=== PATIENT | female | born 1985 | race Caucasian/White ===

== ENCOUNTER 2016-07-09 09:24 | Emergency (ER) | payer SELFPAY ==
[2016-07-09 10:02] LABS: Hematocrit 40.7 % (37.0-47.0); Hemoglobin 13.2 gm/dL (12.5-16.0); Mean Cell Volume 86.6 fl (78-100); Mean Corpuscular Hemoglobin 28.1 pg (27-31); Mean Corpuscular Hgb Conc 32.4 g/dl (32-36); Mean Platelet Volume 9.4 fl (6.0-9.5); Neutrophil # 3.2 K/mm3 (1.3-6.0); Neutrophil % 54.7 % (42-75.0); Platelet Count 199 K/mm3 (150-450); Red Cell Distribution Width 13.7 % (11.5-14.0); White Blood Count 5.9 K/mm3 (4.0-10.5)
[2016-07-09 10:05] LABS: Urine Bilirubin Negative (NEGATIVE); Urine Blood 50 /ul (NEGATIVE); Urine Ketone Negative (NEGATIVE); Urine Nitrite Negative (NEGATIVE); Urine Protein Negative (NEGATIVE); Urine Specific Gravity 1.025 SP.GR. (1.005-1.010); Urine Urobilinogen Normal (NORMAL)
[2016-07-09 10:11] LABS: Urine Appearance Clear; Urine Bacteria TRACE; Urine Color Yellow; Urine WBC None Seen /hpf (0-5)
[2016-07-09 10:11] LABS: Albumin * 4.2 gm/dl (3.4-5.0); Anion Gap 11.7 mmol/L (6.8-13.8); BUN/Creatinine Ratio 9.3 (9.0-21.6); Bilirubin, Total 0.5 mg/dL (0.0-1.1); Ca. Corrected For Albumin 8.6 mg/dL (8.4-10.2); Calcium * 9.1 mg/dL (7.9-10.9); Carbon Dioxide 29.3 mmol/L (24-32.6); Total Protein 8.1 gm/dL (6.2-8.2)
--- NOTE | 2016-07-09 11:08 | ERNOTE ---
Abdominal HPI - Narrative Date of Service: 07/09/16 - General Chief Complaint: Abdominal Pain Time Seen by Provider: 07/09/16 10:59 Source: patient, family, RN notes reviewed Exam Limitations: no limitations - Immun/Allergies/Home Medications Immunizatons: IMMUNIZATION HX Immunizations Up to Date Yes History of Influenza Vaccine No Hx Pneumococcal Vaccination No Allergies/Adverse Reactions: Allergies penicillin G Adverse Reaction (Verified 07/09/16 09:46) Home Medications: HOME MEDICATIONS NK [No Home Medication] 09/01/15 [Last Taken Unknown] - History of Present Illness Narrative: 30 y/o female ambulatory to ED for lower abdominal pain that began this morning. This has been a recurrent problem for at least 2 months and she has been evaluated in [facility] and at [place]. She reports being diagnosed with diverticulitis last month. She reports that her labs have always been normal. At one point she was having rectal bleeding. This resolved. She reports that she has been having vaginal bleeding constantly since the of her last child, who appears to be approximately 2. She denies any nausea or vomiting. She does not have a PCP. Timing: intermittent Quality: severe, aching Activities at Onset: none Prior Abdominal Problems: Present: similar symptoms Prior Treatment: Present: recently seen - elsewhere, treated by physician. Absent: currently on antibiotics Review of Systems - Review of Systems Constitutional: Absent: fever, chills EYE: Present: no symptoms reported ENT: Present: no symptoms reported Respiratory: Absent: shortness of breath, cough Cardiology: Present: no symptoms reported Gastrointestinal/Abdominal: Present: diarrhea, abdominal pain. Absent: nausea, vomiting, eating less, drinking less Genitourinary: Present: other - irregular menses. Absent: frequency, dysuria, hematuria Musculoskeletal: Absent: back pain, muscle pain Skin: Absent: rash, lesions Neurological: Present: dizziness/light-headedness. Absent: headache Endocrine: Present: no symptoms reported Hematologic/Lymphatic: Present: no symptoms reported Psych: Present: no symptoms reported - Patient's Past Medical History Patient History - Medical: No pertinent hx Patient History - Cardiac/Respiratory: No pertinent hx Patient History - Cancer: No Hx of Cancer Patient History - Surgical Procedures: , Tubal Ligation LMP (Calendar): 06/18/16 - Social History Living Situations: home Smoking Status: Current every day smoker Have you smoked in the past 12 months: Yes Alcohol Use: none Drug Use: none Physical Exam - Physical Exam General Appearance: Present: alert, mild distress, thin Neck: Present: normal inspection, nontender, supple Respiratory: Present: no respiratory distress, normal breath sounds, no accessory muscle use, lungs clear Cardiovascular/Chest: Present: regular rate, rhythm, no murmur, normal peripheral pulses Gastrointestinal/Abdominal: Present: nondistended, soft, no organomegaly, tenderness - suprapubic, abnormal bowel sounds - hyperactive. Absent: rebound, mass Back Exam: Present: normal inspection, no CVA tenderness Neurological Exam: Present: alert, oriented, normal mood/affect, no motor/ sensory deficits Skin Exam: Present: normal color, warm/dry ED Progress - Results and Orders Patient's Lab Results:: I have reviewed the patient's lab results. - Vital Signs Patient's Vital Signs:: I have reviewed the patient's vital signs. Vital Signs: Vital Signs 07/09/16 09:41 Temperature 36.4 C L Pulse Rate 101 H Respiratory 16 Rate Blood Pressure 101/68 O2 Sat by Pulse 99 Oximetry - X-Ray X-Ray #1 X-Ray: abdomen Interpretation: Reviewed by me X-ray Comments: TECHNIQUE: AP upright and supine views of the abdomen were obtained, total of 2 images. COMPARISONS: None available.. FINDINGS: Abdomen Flat W/ Upright *: No subdiaphragmatic free air. No abnormal dilation of large or small bowel. Patient has numerous bilateral renal calcifications, with the largest calcification on the right kidney measuring approximately 4 mm, and largest of the left kidney measuring approximately 3 mm. Osseous structures are intact. IMPRESSION: 1. Nonobstructive bowel gas pattern. 2. Numerous bilateral renal calcifications suggested. Correlate clinically for renal colic. Electronically signed by Danilo Deluca M.D.. - Progress/Reassessment Chief Complaint: Abdominal Pain Progress:: Improved Progress Note-Subjective: Minimal improvement in pain with Toradol but did resolve after IV Morphine. Plan - Plan Plan: CBC and CMP unremarkable. Negative serum HCG. Small amount of blood in urine but patient has been spotting and denies flank pain or urinary symptoms. Renal calculi noted on abdominal film, CT done for further eval - no ureteral calculi noted. Patient does have a 3cm right adnexal cyst - her intermittent pain does correlate with ovarian cyst. Discussed need for f/u of pulmonary nodule. 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 Departure - Departure Clinical Impression: Abdominal pain in female patient Disposition: Home Follow Up Needed Condition: Good Instructions: Ovarian Cyst, [id number] Additional Instructions: Ibuprofen every 6 hours for pain Schedule routine check up with gynecology Referrals: Ramirez Rose DO [Staff Physician] -
[2016-07-09] MEDS ORDERED: KETOROLAC TROMETHAMINE 60 MG/2 ML VIAL IM ONE ×2 (11:10→11:20)
[2016-07-09] MEDS ORDERED: METOCLOPRAMIDE HCL 5 MG/ML VIAL IV ONE (12:47)
[2016-07-09] MEDS ORDERED: MORPHINE SULFATE 2 MG/ML DISP.SYRIN IV ONE (12:47)
[2016-07-09] MEDS ORDERED: NORMAL SALINE 1,000 ML IV ONE (12:48)
[2016-07-09 13:06] VITALS: BP 103/70
== END 2016-07-09 14:21 | disposition home or self-care (01) ==
LOC: ER 09:24
DX: R10.9 Unspecified abdominal pain (principal); F17.210 Nicotine dependence, cigarettes, uncomplicated

== ENCOUNTER 2016-07-13 14:31 | Emergency (ER) | payer SELFPAY ==
[2016-07-13 14:50] VITALS: BP 107/70
[2016-07-13 15:06] LABS: Urine Bilirubin Negative (NEGATIVE); Urine Ketone Negative (NEGATIVE); Urine Nitrite Negative (NEGATIVE); Urine Protein Negative (NEGATIVE); Urine Specific Gravity 1.015 SP.GR. (1.005-1.010); Urine Urobilinogen Normal (NORMAL)
[2016-07-13] MEDS ORDERED: diphenhydrAMINE HCL 50 MG/ML VIAL IV ONE (15:06)
[2016-07-13] MEDS ORDERED: PROMETHAZINE HCL 12.5 MG in DEXTROSE 5 % IN WATER 50 ML IV ONE ×2 (15:06)
[2016-07-13] MEDS ORDERED: KETOROLAC TROMETHAMINE 30 MG/ML VIAL IV ONE (15:06)
[2016-07-13] MEDS ORDERED: NORMAL SALINE 1,000 ML IV ONE (15:06)
[2016-07-13 15:15] LABS: Hematocrit 35.9 % (37.0-47.0); Hemoglobin 11.7 gm/dL (12.5-16.0); Mean Cell Volume 86.3 fl (78-100); Mean Corpuscular Hemoglobin 28.1 pg (27-31); Mean Corpuscular Hgb Conc 32.6 g/dl (32-36); Mean Platelet Volume 9.2 fl (6.0-9.5); Neutrophil # 5.1 K/mm3 (1.3-6.0); Neutrophil % 61.4 % (42-75.0); Platelet Count 185 K/mm3 (150-450); Red Blood Count 4.16 M/mm3 (4.2-5.4); Red Cell Distribution Width 13.9 % (11.5-14.0); Urine Blood 10 /ul (NEGATIVE); Urine Color Yellow; White Blood Count 8.4 K/mm3 (4.0-10.5)
[2016-07-13 15:16] LABS: Urine Appearance Clear; Urine Bacteria TRACE; Urine WBC TRACE /hpf (0-5)
[2016-07-13] MEDS ORDERED: diphenhydrAMINE HCL 50 MG/ML VIAL ONE (15:29)
[2016-07-13] MEDS ORDERED: KETOROLAC TROMETHAMINE 30 MG/ML VIAL ONE (15:29)
[2016-07-13 15:30] LABS: Anion Gap 11.6 mmol/L (6.8-13.8); BUN/Creatinine Ratio 12.7 (9.0-21.6); Bilirubin, Total 0.3 mg/dL (0.0-1.1); Ca. Corrected For Albumin 8.5 mg/dL (8.4-10.2); Calcium * 8.8 mg/dL (7.9-10.9); Carbon Dioxide 29.3 mmol/L (24-32.6); Potassium 3.9 mmol/L (3.4-4.6); Total Protein 7.7 gm/dL (6.2-8.2)
--- NOTE | 2016-07-13 17:20 | ERNOTE ---
ER Female HPI Date of Service: 07/13/16 Stated Complaint: UTI Time Seen by Provider: 07/13/16 14:59 Source: patient Exam Limitations: no limitations Immunizations: IMMUNIZATION HX Immunizations Up to Date Yes History of Influenza Vaccine No Hx Pneumococcal Vaccination No Allergies/Adverse Reactions: Allergies penicillin G Adverse Reaction (Verified 07/13/16 14:50) Home Medications: HOME MEDICATIONS Ciprofloxacin HCl [Cipro] 500 mg PO BID #17 tab 07/13/16 [Last Taken Unknown] Etodolac 300 mg PO BID PRN #8 capsule 07/13/16 [Last Taken Unknown] - History of Present Illness Narrative: Patient presents to the ED with right back pain that radiates to her right abdomen. She relates she has been having this pain ever since saturday. The pain has not changed. She was seen and evaluated with labs and CT scan revealing multiple kidney stones in the kidney and a 3cm right sided cyst. SHe does not think the cyst is causing her pain because she has no pelvic pain. She has some intermittent dysuria. No other vaginal Sx. She tells me she primarily wants something for the pain because the tylenol and Ibuprofen are not helping. No vomiting, no fever. Timing: Present: constant Quality: Present: aching Onset Location: Present: other - right back radiating to right abdomen Activities at Onset: Present: none Prior Abdominal Problems: Present: none Modifying Factors - (Improves): Present: other Modifying Factors - (Worsens): Present: other - none Associated Symptoms: Present: nausea, dysuria. Absent: fever/chills, urinary frequency Prior Treatment: Present: recently seen Review of Systems - Review of Systems Constitutional: Absent: fever ENT: Present: no symptoms reported Respiratory: Present: no symptoms reported Cardiology: Present: no symptoms reported Gastrointestinal/Abdominal: Present: nausea, abdominal pain Genitourinary: Absent: frequency, decreased urinary output Neurological: Absent: weakness - Patient's Past Medical History Patient History - Medical: No pertinent hx Patient History - Cardiac/Respiratory: No pertinent hx Patient History - Cancer: No Hx of Cancer Patient History - Surgical Procedures: , Tubal Ligation Patient History - Other: None LMP (females 10-50): 1 month LMP (Calendar): 06/18/16 - Social History Living Situations: home Alcohol Use: none Drug Use: none - Immunizations Immunizations Up to Date: Yes Hx Pneumococcal Vaccination: No History of Influenza Vaccine: No Physical Exam - Physical Exam General Appearance: Present: alert, no apparent distress Eye Exam: Normal inspection: bilateral, PERRL: bilateral Ears, Nose, Throat: Present: normal ENT inspection Neck: Present: normal inspection Respiratory: Present: no respiratory distress, normal breath sounds, no accessory muscle use, lungs clear Cardiovascular/Chest: Present: regular rate, rhythm Gastrointestinal/Abdominal: Present: normal bowel sounds, nondistended, soft, other - Mild right lateral mid abdominal tenderness. No peritoneal signs, no guarding or rebound. Non-surgical exam.. Absent: guarding, rebound, McBurney sign, Segura sign Back Exam: Present: CVA tenderness (R) Extremity Exam: Present: normal inspection Neurological Exam: Present: alert, no motor/sensory deficits Skin Exam: Absent: skin rash ED Progress - Results and Orders Patient's Lab Results:: I have reviewed the patient's lab results. - Vital Signs Patient's Vital Signs:: I have reviewed the patient's vital signs. Vital Signs: Vital Signs 07/13/16 14:46 Temperature 37.4 C Pulse Rate 93 Respiratory 16 Rate Blood Pressure 107/70 O2 Sat by Pulse 97 Oximetry - Progress/Reassessment Chief Complaint: Genitourinary Problem Progress:: Improved Progress Note-Subjective: 07/13/16 17:[address] scan, this was reviewed. She has a non-surgical exam and is non- toxic and in no distress. I do not feel a repeat CT is needed at this point. Giventhe bacteria and trace WBCs I would start ABX. She needs to be seen saturday for a re-check and sooner if fever or worsening Sx. I discussed this at length with her and she is agreeable. I discussed warning signs and reasons to reutrn as well as the need for close f/u. Departure Clinical Impression: Flank pain - Departure Disposition: Home self-care Condition: Stable Instructions: Flank Pain, [id number] Additional Instructions: Rest. Fluids. Stop Ibuprofen while taking new medication. You may continue tylenol. Take antibiotic as directed. You need to be seen saturday for a re- check with a doctor. Return sooner for fever, vomiting, increased pain or if your condition worsens or changes in any way. Prescriptions: Ciprofloxacin HCl [Cipro] 500 mg PO BID #17 tab Etodolac 300 mg PO BID PRN #8 capsule PRN Reason: Pain
== END 2016-07-13 17:25 | disposition home or self-care (01) ==
LOC: ER 14:31
DX: R10.9 Unspecified abdominal pain (principal)

== ENCOUNTER 2016-07-21 16:42 | Emergency (ER) | payer SELFPAY ==
[2016-07-21] MEDS ORDERED: ALBUTEROL SULFATE/IPRATROPIUM 3 ML NEBU IH ONE ×2 (17:38→18:08)
[2016-07-21] MEDS ORDERED: NORMAL SALINE 1,000 ML IV ONE (17:38)
--- NOTE | 2016-07-21 17:49 | ERNOTE ---
Medical Problem HPI - Narrative Date of Service: 07/21/16 - General Chief Complaint: Flu Symptoms Time Seen by Provider: 07/21/16 17:35 Source: patient, RN notes reviewed Exam Limitations: clinical condition - Immun/Allergies/Home Medications Immunizations: IMMUNIZATION HX Immunizations Up to Date Yes History of Influenza Vaccine No Hx Pneumococcal Vaccination No Allergies/Adverse Reactions: Allergies penicillin G Adverse Reaction (Verified 07/21/16 16:59) Home Medications: HOME MEDICATIONS Sulfamethoxazole/Trimethoprim [Bactrim Ds] 1 tab PO BID #20 tab 07/21/16 [Last Taken Unknown] predniSONE [Prednisone] 2 tab PO DAILY #14 tab 07/21/16 [Last Taken Unknown] - Pain Score Pain Score #1 Pain Score: 6 - History of Present History Narrative: julita is a 30 year old female who presents to the er with c/o fever, uri symptoms, dizziness, cough. denies cp. denies abdominal pain. also c/o lightheaded. has not been eating or drinking well. ill contacts at home. Timing: constant, getting worse Severity: moderate Review of Systems - Review of Systems Constitutional: Present: fever, chills, weakness, fatigue, malaise EYE: Present: no symptoms reported ENT: Present: nose congestion, nasal drainage, sore throat Respiratory: Present: cough Cardiology: Present: no symptoms reported Gastrointestinal/Abdominal: Present: eating less, drinking less Genitourinary: Present: no symptoms reported Musculoskeletal: Present: no symptoms reported Skin: Present: no symptoms reported Neurological: Present: dizziness/light-headedness Endocrine: Present: no symptoms reported Hematologic/Lymphatic: Present: no symptoms reported Psych: Present: no symptoms reported All Other Systems: All systems neg except as marked - Patient's Past Medical History Patient History - Medical: No pertinent hx Patient History - Cardiac/Respiratory: No pertinent hx Patient History - Cancer: No Hx of Cancer Patient History - Surgical Procedures: , Tubal Ligation Patient History - Other: None LMP (females 10-50): now LMP (Calendar): 06/18/16 - Social History Living Situations: home Abuse History: No History of abuse Psych History: No pertinent hx Smoking Status: Current every day smoker Alcohol Use: none Drug Use: none - Immunizations Immunizations Up to Date: Yes Hx Pneumococcal Vaccination: No History of Influenza Vaccine: No Physical Exam - Physical Exam General Appearance: Present: wd/wn, alert, moderate distress Eye Exam: Normal inspection: bilateral Ears, Nose, Throat: Present: hearing grossly normal, pharyngeal erythema Neck: Present: normal inspection, supple, full range of motion, lymphadenopathy (R), lymphadenopathy (L) Respiratory: Present: no respiratory distress, no accessory muscle use, chest nontender, rhonchi Cardiovascular/Chest: Present: regular rate, rhythm, no murmur, normal peripheral pulses Gastrointestinal/Abdominal: Present: nontender, nondistended, soft Rectal Exam: Present: deferred Back Exam: Present: normal inspection, no vertebral tenderness Extremity Exam: Present: normal inspection, non-tender, no edema, normal range of motion Neurological Exam: Present: alert, oriented, normal mood/affect, no motor/ sensory deficits Skin Exam: Present: normal color, warm/dry ED Progress - Results and Orders Results and Orders: Laboratory Tests 07/21/16 17:09 Influenza Type A Ag Negative Influenza Type B Ag Negative Laboratory Tests 07/21/16 07/21/16 07/21/16 17:40 17:40 17:50 WBC 4.6 RBC 4.14 L Hgb 11.8 L Hct 34.9 L MCV 84.3 MCH 28.5 MCHC 33.8 RDW 13.4 Plt Count 150 MPV 9.4 Immature Gran % (Auto) 0.20 Immature Gran # (Auto) 0.01 Neutrophils % 69.4 Lymphocytes % 15.8 L Monocytes % 12.7 H Eosinophils % 1.5 Basophils % 0.4 Nucleated RBC % 0.0 Neutrophils # 3.2 Lymphocytes # 0.7 L Monocytes # 0.6 Eosinophils # 0.1 Absolute Basophils 0.0 Sodium 138 Plasma Sodium 138 Potassium 3.5 Chloride 102 Carbon Dioxide 25.4 Anion Gap 14.1 H BUN 8 Creatinine 0.84 Est GFR (Non-Af Amer) 85 D BUN/Creatinine Ratio 9.5 Random Glucose 92 Calcium 8.9 Calcium Adj for Albumin 8.4 Total Bilirubin 0.5 AST 13 ALT 19 Alkaline Phosphatase 54 C-Reactive Prot, Quant 1.8 H Total Protein 7.9 Albumin 4.2 Serum HCG, Qual Negative Group A Strep Rapid 07/21/16 18:00 WBC RBC Hgb Hct MCV MCH MCHC RDW Plt Count MPV Immature Gran % (Auto) Immature Gran # (Auto) Neutrophils % Lymphocytes % Monocytes % Eosinophils % Basophils % Nucleated RBC % Neutrophils # Lymphocytes # Monocytes # Eosinophils # Absolute Basophils Sodium Plasma Sodium Potassium Chloride Carbon Dioxide Anion Gap BUN Creatinine Est GFR (Non-Af Amer) BUN/Creatinine Ratio Random Glucose Calcium Calcium Adj for Albumin Total Bilirubin AST ALT Alkaline Phosphatase C-Reactive Prot, Quant Total Protein Albumin Serum HCG, Qual Group A Strep Rapid Negative Laboratory Tests 07/21/16 07/21/16 17:55 17:55 Urine Color Yellow Urine Appearance Slightly cloudy Urine pH 7.5 Ur Specific Hewitt 1.020 Urine Protein Negative Urine Glucose (UA) Negative Urine Ketones 15 Urine Blood 250 H Urine Nitrate Negative Urine Bilirubin Negative Urine Urobilinogen Normal Ur Leukocyte Esterase 100 H Urine RBC >50 H Urine WBC 10-25 H Ur Epithelial Cells None seen Urine Bacteria 1+ H Urine Culture Comments Culture to follow Urine Opiates Screen Negative Barbiturate Screen Negative Ur Phencyclidine Scrn Negative Urine Amphetamine Negative U Benzodiazepines Scrn Negative Urine Cocaine Screen Negative Urine Marijuana (THC) Negative - Vital Signs Vital Signs: Vital Signs 07/21/16 16:57 Temperature 38.7 C H Pulse Rate 111 H Respiratory 16 Rate Blood Pressure 82/53 O2 Sat by Pulse 100 Oximetry - X-Ray X-Ray #1 X-Ray: chest Interpretation: Reviewed by me X-ray Comments: Exam Date: 07/21/2016 18:39 Ordering Physician: Augusta Spencer History: Cough and fever. Flu symptoms for 3 to 4 days. Technique: PA and lateral views of the chest utilizing three total images are evaluated without comparison. Findings: There is diffuse central bronchial wall thickening and inflammation. No focal consolidation to suggest pneumonia. No pleural effusion or pneumothorax. The cardiac silhouette and pulmonary vasculature are normal. The osseous structures are normal. IMPRESSION: FINDINGS SUGGESTIVE OF BRONCHITIS VERSUS REACTIVE AIRWAY DISEASE. NO CONSOLIDATION TO SUGGEST PNEUMONIA. Electronically signed by Bakari Ventura D.O.. - Progress/Reassessment Chief Complaint: Flu Symptoms Departure - Departure Clinical Impression: Dehydration, Bronchitis UTI (urinary tract infection) Qualifiers: Urinary tract infection type: acute cystitis Hematuria presence: with hematuria Qualified Code(s): N30.01 - Acute cystitis with hematuria URI (upper respiratory infection) Qualifiers: URI type: unspecified URI Qualified Code(s): J06.9 - Acute upper respiratory infection, unspecified Disposition: Home self-care Condition: Good Instructions: Acute Bronchitis, [id number] Additional Instructions: first dose of bactrim ds given in the er. next dose due in the am. start prednisone in the am - take with food. Prescriptions: Sulfamethoxazole/Trimethoprim [Bactrim Ds] 1 tab PO BID #20 tab predniSONE [Prednisone] 2 tab PO DAILY #14 tab
[2016-07-21 17:55] LABS: Hematocrit 34.9 % (37.0-47.0); Hemoglobin 11.8 gm/dL (12.5-16.0); Mean Cell Volume 84.3 fl (78-100); Mean Corpuscular Hemoglobin 28.5 pg (27-31); Mean Corpuscular Hgb Conc 33.8 g/dl (32-36); Mean Platelet Volume 9.4 fl (6.0-9.5); Neutrophil # 3.2 K/mm3 (1.3-6.0); Neutrophil % 69.4 % (42-75.0); Platelet Count 150 K/mm3 (150-450); Red Blood Count 4.14 M/mm3 (4.2-5.4); Red Cell Distribution Width 13.4 % (11.5-14.0); White Blood Count 4.6 K/mm3 (4.0-10.5)
[2016-07-21] MEDS ORDERED: KETOROLAC TROMETHAMINE 30 MG/ML VIAL IV ONE (18:07)
[2016-07-21] MEDS ORDERED: KETOROLAC TROMETHAMINE 30 MG/ML VIAL ONE (18:08)
[2016-07-21 18:10] LABS: Albumin * 4.2 gm/dl (3.4-5.0); Anion Gap 14.1 mmol/L (6.8-13.8); BUN/Creatinine Ratio 9.5 (9.0-21.6); Bilirubin, Total 0.5 mg/dL (0.0-1.1); CRP 1.8 mg/dL (0.0-0.9); Ca. Corrected For Albumin 8.4 mg/dL (8.4-10.2); Calcium * 8.9 mg/dL (7.9-10.9); Carbon Dioxide 25.4 mmol/L (24-32.6); Potassium 3.5 mmol/L (3.4-4.6); Total Protein 7.9 gm/dL (6.2-8.2)
[2016-07-21 18:27] LABS: Cocaine Ur Negative (NEGATIVE); Urine Barbiturate Negative (NEGATIVE); Urine Benzodiazepines Negative (NEGATIVE); Urine Opiates Negative (NEGATIVE); Urine PCP Negative (NEGATIVE)
[2016-07-21 18:31] LABS: Urine THC Negative (NEGATIVE)
[2016-07-21 18:32] LABS: Urine Appearance Slightly Cloudy; Urine Bilirubin Negative (NEGATIVE); Urine Blood 250 /ul (NEGATIVE); Urine Color Yellow; Urine Ketone 15 mg/dL (NEGATIVE); Urine Protein Negative (NEGATIVE); Urine Urobilinogen Normal (NORMAL); Urine pH 7.5 pH (5.0-7.0)
[2016-07-21 18:33] LABS: Urine Bacteria 1+; Urine Nitrite Negative (NEGATIVE); Urine RBC >50 /hpf (0-5)
[2016-07-21 19:06] VITALS: BP 128/76
[2016-07-21] MEDS ORDERED: SULFAMETHOXAZOLE/TRIMETHOPRIM 1 TAB TABLET PO ONE (19:15)
[2016-07-21] MEDS ORDERED: METHYLPREDNISOLONE SOD SUCC/PF 40 MG/ML VIAL IV ONE (19:15)
[2016-07-21] MEDS ORDERED: SULFAMETHOXAZOLE/TRIMETHOPRIM 1 TAB TABLET ONE (19:19)
[2016-07-21] MEDS ORDERED: METHYLPREDNISOLONE SOD SUCC/PF 40 MG/ML VIAL ONE (19:33)
== END 2016-07-21 19:42 | disposition home or self-care (01) ==
LOC: ER 16:42
DX: E86.0 Dehydration (principal); J40 Bronchitis, not specified as acute or chronic; N30.01 Acute cystitis with hematuria; J06.9 Acute upper respiratory infection, unspecified; F17.210 Nicotine dependence, cigarettes, uncomplicated
CPT/HCPCS: 36415; 71020; 80053; 81001; 84703; 85025; 86140; 87081; 87086; 87400; 87430; 96361; 96374; 99283; G0479

== ENCOUNTER 2017-02-11 11:44 | Emergency (ER) | payer SELFPAY ==
[2017-02-11] MEDS ORDERED: NALBUPHINE HCL 20 MG/ML AMPUL IM ONE (12:10)
[2017-02-11] MEDS ORDERED: ORPHENADRINE CITRATE 30 MG/ML VIAL IM ONE (12:10)
--- NOTE | 2017-02-11 12:21 | ERNOTE ---
Back Pain ER HPI Date of Service: 02/11/17 Time Seen by Provider: 02/11/17 11:59 Source: patient Exam Limitations: no limitations Immunizations: IMMUNIZATION HX Immunizations Up to Date Yes History of Influenza Vaccine No Hx Pneumococcal Vaccination No Allergies/Adverse Reactions: Allergies penicillin G Adverse Reaction (Verified 02/11/17 11:52) Home Medications: HOME MEDICATIONS Cyclobenzaprine HCl [Flexeril] 10 mg PO TID PRN #30 tab 02/11/17 [Last Taken Unknown] Narrative: Pt. comes in with c/o chronic neck pain that she has been seeing her PCP for and was recently referred t a neurologist for this. Pt. had been taking Tyro for this and states that it is not working. Pt. also takes diclofinac which helps some but states that she is not able to stand the pain that is left especially when she moves as this exacerbates the pain. Review of Systems - Review of Systems Constitutional: Present: no symptoms reported. Absent: recent illness, fever, chills, weakness, fatigue, malaise EYE: Present: no symptoms reported ENT: Present: no symptoms reported Respiratory: Present: no symptoms reported. Absent: shortness of breath, cough , wheezing Cardiology: Present: no symptoms reported. Absent: chest pain, edema Gastrointestinal/Abdominal: Present: no symptoms reported. Absent: nausea, vomiting, diarrhea Genitourinary: Present: no symptoms reported Musculoskeletal: Present: neck pain. Absent: back pain, joint pain Skin: Present: no symptoms reported. Absent: rash, change in color Neurological: Present: no symptoms reported. Absent: headache, dizziness/light- headedness, numbness, tingling Endocrine: Present: no symptoms reported All Other Systems: All systems neg except as marked - Patient's Past Medical History Patient History - Medical: No pertinent hx Patient History - Cardiac/Respiratory: No pertinent hx Patient History - Cancer: No Hx of Cancer Patient History - Surgical Procedures: , Tubal Ligation Patient History - Other: None LMP (Calendar): 06/18/16 - Social History Living Situations: home Abuse History: No History of abuse Psych History: No pertinent hx Alcohol Use: none Drug Use: none - Immunizations Immunizations Up to Date: Yes Hx Pneumococcal Vaccination: No History of Influenza Vaccine: No Physical Exam - Physical Exam General Appearance: Present: wd/wn, alert, no apparent distress Head Exam: Present: normal inspection, no evidence of injury Eye Exam: PERRL: bilateral - 5mm and sluggish but equal and reactive Neck: Present: full range of motion, tender lateral - Left paraspinous, tender posterior midline - C3. 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 Absent: pallor, skin rash ED Progress - Date and Time Seen: Date and Time: 02/11/17 12:17 Pt. unable to keep eyes open during exam although pt. denies taking her Tyro since last Saturday and denies any other ilicit drug use. Also since pt. has had recent imaging including MRI feel that pt. does not need any more imaging since she has not had recent injury. Will obtain records from [facility]. 02/11/17 14:18 Reviewed pt. records and although she states that the medications I gave her helped she is declining prescription muscle relaxer but I educated her that this will help her and give the most benefit with the least side effect especially in combination with the Diclofinac. Pt. statest ath she will take the script but may not fill it. - Results and Orders Patient's Lab Results:: I have reviewed the patient's lab results. - Vital Signs Patient's Vital Signs:: I have reviewed the patient's vital signs. Vital Signs: Vital Signs 02/11/17 11:49 Temperature 36.7 C Pulse Rate 93 Respiratory 12 Rate Blood Pressure 124/87 O2 Sat by Pulse 99 Oximetry - Progress/Reassessment Chief Complaint: Back Pain Departure Clinical Impression: Degenerative cervical spinal stenosis - Departure Disposition: Home self-care Condition: Good Instructions: Degenerative Disk Disease Additional Instructions: Please follow up with neurosurgeon as planned. Prescriptions: Cyclobenzaprine HCl [Flexeril] 10 mg PO TID PRN #30 tab PRN Reason: MUSCLE SPASMS
[2017-02-11] MEDS ORDERED: NALBUPHINE HCL 20 MG/ML AMPUL ONE (12:39)
[2017-02-11] MEDS ORDERED: ORPHENADRINE CITRATE 30 MG/ML VIAL ONE (12:39)
[2017-02-11 12:45] LABS: Urine Bilirubin Negative (NEGATIVE); Urine Blood 250 /ul (NEGATIVE); Urine Ketone Negative (NEGATIVE); Urine Nitrite Negative (NEGATIVE); Urine Protein Negative (NEGATIVE); Urine Specific Gravity 1.025 SP.GR. (1.005-1.010); Urine Urobilinogen Normal (NORMAL)
[2017-02-11 12:53] LABS: Urine Appearance Clear; Urine Bacteria None Seen; Urine Color Yellow; Urine WBC 0-5 /hpf (0-5)
[2017-02-11 13:01] LABS: Cocaine Ur Negative (NEGATIVE); Urine Barbiturate Negative (NEGATIVE); Urine Benzodiazepines Negative (NEGATIVE); Urine PCP Negative (NEGATIVE); Urine THC Negative (NEGATIVE)
[2017-02-11 13:04] LABS: Urine Opiates Positive (NEGATIVE)
[2017-02-11 14:38] VITALS: BP 118/84
== END 2017-02-11 14:39 | disposition home or self-care (01) ==
LOC: ER 11:44
DX: M48.02 Spinal stenosis, cervical region (principal)

== ENCOUNTER 2017-05-11 19:58 | Emergency (ER) | payer SELFPAY ==
[2017-05-11 20:18] LABS: Hemoglobin 13.6 gm/dL (12.5-16.0); Mean Corpuscular Hemoglobin 31.1 pg (27-31); Mean Corpuscular Hgb Conc 34.9 g/dl (32-36); Neutrophil # 5.1 K/mm3 (1.3-6.0); Neutrophil % 57.8 % (42-75.0); Platelet Count 201 K/mm3 (150-450); Red Blood Count 4.38 M/mm3 (4.2-5.4); Red Cell Distribution Width 13.4 % (11.5-14.0); White Blood Count 8.9 K/mm3 (4.0-10.5)
--- NOTE | 2017-05-11 20:30 | ERNOTE ---
Dyspnea - Date Date of Service: 05/11/17 - General Presenting Symptoms: difficulty of breathing Time Seen by Provider: 05/11/17 20:05 Source: patient - Immun/Allergies/Home Medications Immunizations: IMMUNIZATION HX Immunizations Up to Date Yes History of Influenza Vaccine No Hx Pneumococcal Vaccination No Allergies/Adverse Reactions: Allergies penicillin G Adverse Reaction (Verified 05/11/17 20:09) Home Medications: HOME MEDICATIONS HYDROcodone/ACETAMINOPHEN [[place] 5-325] 1 each PO QID PRN #12 tablet 05/11/17 [ Last Taken Unknown] tiZANidine HCL [Tizanidine HCl] 10 mg PO TID PRN 05/11/17 [Last Taken Unknown] - History of Present Illness Narrative: This is a 31-year-old female who comes to the emergency department complaining of about one and a half hours of feeling short of breath. She says it feels like she can't get enough air in. She denies any coughing or fever. The patient says she has been cooking a hot stove since 6 this morning. The patient has never felt like this before. She has not had any leg swelling or chest pain. She does not have any nausea or vomiting. She does report that she gets tingling to her face and perioral area bilateral hands and bilateral feet. Of importance the patient had an anterior cervical discectomy with fusion at C5 6 done about 2 months ago. She has been on chronic narcotic therapy for 3-4 months. She took her last half of a hydrocodone this morning. The patient denies ever having any withdrawal symptoms but admits that she has not been off the medicine more than 12 hours since the surgery. Review of Systems - Review of Systems Constitutional: Present: no symptoms reported EYE: Present: no symptoms reported ENT: Present: no symptoms reported Respiratory: Present: shortness of breath Cardiology: Present: no symptoms reported Gastrointestinal/Abdominal: Present: no symptoms reported Genitourinary: Present: no symptoms reported Musculoskeletal: Present: no symptoms reported Skin: Present: no symptoms reported Neurological: Present: other - tinglingh Endocrine: Present: no symptoms reported Hematologic/Lymphatic: Present: no symptoms reported Psych: Present: anxiety All Other Systems: All systems neg except as marked - Patient's Past Medical History Patient History - Medical: No pertinent hx Patient History - Cardiac/Respiratory: No pertinent hx Patient History - Cancer: No Hx of Cancer Patient History - Surgical Procedures: Back Surgery, , Tubal Ligation Patient History - Other: None - Social History Abuse History: No History of abuse Psych History: No pertinent hx - Immunizations Immunizations Up to Date: Yes Hx Pneumococcal Vaccination: No History of Influenza Vaccine: No Physical Exam - Physical Exam General Appearance: Present: wd/wn, alert, no apparent distress, other - appear slightly anxious Head Exam: Present: normal inspection, no evidence of injury Eye Exam: Normal inspection: bilateral, PERRL: bilateral, EOMI: bilateral, Other : bilateral - no nystagmus Ears, Nose, Throat: Present: normal ENT inspection, normal pharynx Neck: Present: normal inspection, nontender, other - well-healing scar anterior Respiratory: Present: no respiratory distress, normal breath sounds, lungs clear Cardiovascular/Chest: Present: regular rate, rhythm, no murmur, normal peripheral pulses Gastrointestinal/Abdominal: Present: normal bowel sounds, nontender, nondistended, soft, no organomegaly Back Exam: Present: normal inspection, normal range of motion, no CVA tenderness , no vertebral tenderness Extremity Exam: Present: normal inspection, normal range of motion, no edema Neurological Exam: Present: alert, oriented, normal mood/affect, no motor/ sensory deficits Skin Exam: Present: normal color, warm/dry Lymphatic Exam: Present: no adenopathy ED Progress - Results and Orders Patient's Lab Results:: I have reviewed the patient's lab results. - Vital Signs Patient's Vital Signs:: I have reviewed the patient's vital signs. Vital Signs: Vital Signs 05/11/17 20:01 Temperature 37.5 C Pulse Rate 97 Respiratory 14 Rate Blood Pressure 130/89 O2 Sat by Pulse 100 Oximetry - Progress/Reassessment Chief Complaint: Dyspnea Progress:: Improved Progress Note-Subjective: 05/11/17 21:24 Patient received the IM/subcutaneous morphine. 30 minutes later she says all of her symptoms are better Plan - Plan Plan: Patient's symptoms, presentation, and history all are very consistent with mild drug withdrawal. He got better with a bit of narcotic. She's been taking this therapeutically. She has been on for several months so tolerance and dependence is likely. I'm giving her 10 tablets to get her through until Saturday. She will speak with the doctor who prescribed this and talk about getting weaned to get off of the medicine. He'll return for new concerning symptoms Departure Clinical Impression: Opiate dependence - Departure Disposition: Home self-care Condition: Good Additional Instructions: Ancillary discussed her symptoms are very consistent with mild drug withdrawal. Anybody has been taking pain medicine for several months at a higher dose like you have, even though short taking it as prescribed by their doctor, have a some degree of dependence develop. This is not addiction. I have given me some [place] to help to get through until Saturday. Take 1 tablet 2-3 times a day if needed. Call the doctor who prescribed her pain medicine on Saturday. Tell them you were seen in the ER that you are having signs of very mild pain medicine withdrawal. That doctor will need to gradually wean U off of the medicine. Certainly if he develops fever, vomiting, any new concerning symptoms return to the ER Prescriptions: HYDROcodone/ACETAMINOPHEN [[place] 5-325] 1 each PO QID PRN #12 tablet PRN Reason: Pain
[2017-05-11 20:38] LABS: ALT 18 U/L (19-67); AST 15 U/L (0-48); Albumin * 4.2 gm/dl (3.4-5.0); Alkaline Phosphatase * 59 U/L (50-170); BUN/Creatinine Ratio 9.3 (9.0-21.6); Bilirubin, Total 0.5 mg/dL (0.0-1.1); Blood Urea Nitrogen 8 mg/dL (3-23); Ca. Corrected For Albumin 8.9 mg/dL (8.4-10.2); Calcium * 9.4 mg/dL (7.9-10.9); Carbon Dioxide 25.4 mmol/L (24-32.6); Chloride 103 mmol/L (97-106); Glucose * 111 mg/dL (70-110); Potassium 3.4 mmol/L (3.4-4.6); Sodium 139 mmol/L (132-142); Troponin I Less than 0.017 ng/ml (0.00-0.10)
[2017-05-11] MEDS ORDERED: fentaNYL CITRATE/PF 50 MCG/ML AMPUL ONE (20:39)
[2017-05-11] MEDS ORDERED: fentaNYL CITRATE/PF 50 MCG/ML AMPUL IV ONE (20:39)
[2017-05-11] MEDS ORDERED: MORPHINE SULFATE 4 MG/ML SYRG IM ONE (20:40)
[2017-05-11] MEDS ORDERED: MORPHINE SULFATE 10 MG/ML SYRG ONE (20:41)
[2017-05-11] MEDS ORDERED: MORPHINE SULFATE 10 MG/ML SYRG SC ONE (20:45)
[2017-05-12 01:02] VITALS: BP 112/73
== END 2017-05-11 21:40 | disposition home or self-care (01) ==
LOC: ER 19:58
DX: F11.20 Opioid dependence, uncomplicated (principal)